=== PATIENT | male | born 1980 | race Two or more races ===

== ENCOUNTER 2019-12-21 15:19 | Emergency (ER) | payer MEDICAID ==
[~2019-12-21] VITALS: Ht 177.8 cm; Wt 74.8 kg
[2019-12-21 15:45] VITALS: BP 182/113
== END 2019-12-21 17:43 | disposition home or self-care (01) ==
LOC: ER 15:19
DX: H10.33 Unspecified acute conjunctivitis, bilateral (principal)

== ENCOUNTER 2020-10-12 22:18 | Emergency (ER) | payer MEDICAID ==
[~2020-10-12] VITALS: Ht 180.3 cm; Wt 74.8 kg
[2020-10-12 22:46] VITALS: BP 157/99
== END 2020-10-12 23:38 | disposition left against medical advice (07) ==
LOC: ER 22:18
DX: N50.811 Right testicular pain (principal); N50.812 Left testicular pain; Z53.21 Procedure and treatment not carried out due to patient leaving prior to being seen by health care provider

== ENCOUNTER 2022-01-09 00:42 | Emergency (ER) | payer MEDICAID ==
[~2022-01-09] VITALS: Ht 180.3 cm; Wt 74.8 kg
[2022-01-09] MEDS ORDERED: cefTRIAXone SOD 1,000 MG VL IM ONE (01:15)
[2022-01-09] MEDS ORDERED: LIDOCAINE 1% HCL (LOCAL ANESTH.) INJ 20ML MDV ID ONE (01:45)
[2022-01-09 02:02] LABS: Basophils # (auto) 0 10 ^3/uL (0-0.2); Basophils % (auto) 0.3 % (0.0-2.0); Eosinophils # (auto) 0 10 ^3/uL (0-0.8); Eosinophils % (auto) 0.1 % (0.0-7.0); Hematocrit 40.2 % (41.0-53.0); Hemoglobin 13.2 g/dL (13.5-17.5); Lymphocytes # (auto) 0.9 10 ^3/uL (0.4-5.4); Lymphocytes % (auto) 7.5 % (10.0-50.0); Mean Corpuscular Hemoglobin 29.6 pg (28.0-32.0); Mean Corpuscular Hgb Conc. 32.8 g/dL (32.0-36.0); Mean Corpuscular Volume 90.1 fL (80.0-100.0); Monocytes # (auto) 0.4 10 ^3/uL (0-1.3); Monocytes % (auto) 3.4 % (0.0-12.0); Neutrophils # (auto) 10.8 10 ^3/uL (1.6-8.6); Neutrophils % (auto) 88.7 % (37.0-80.0); Red Blood Cells 4.46 10^6/uL (4.5-5.90); Red Cell Distribution Width 13.8 % (11.8-14.3); White Blood Cell 12.1 10^3/uL (4.4-10.8)
[2022-01-09 02:16] LABS: Lactic Acid w/Reflex 2.4 mmol/L (0.4-2.0)
[2022-01-09 02:17] LABS: Albumin 3.1 g/dL (3.4-5.0); BUN/Creatinine Ratio 15.2; Calcium 8.1 mg/dL (8.5-10.1); Potassium 3.2 mmol/L (3.5-5.1)
[2022-01-09 02:19] LABS: Bilirubin, Total 0.6 mg/dL (0.2-1.0); Total Protein 6.7 g/dL (6.4-8.2)
[2022-01-09 02:37] VITALS: BP 181/117
[2022-01-09 02:47] LABS: Urine Bacteria FEW /hpf (None Seen); Urine Blood Negative /uL (Negative); Urine Mucus FEW (None Seen); Urine WBC 12 /hpf (0 - 3)
== END 2022-01-09 05:18 | disposition home or self-care (01) ==
LOC: ER 00:42
DX: G82.20 Paraplegia, unspecified (principal); N39.0 Urinary tract infection, site not specified
CPT/HCPCS: 36415; 80053; 81001; 83605; 85025; 96372; 99283; J0696; J2001